=== PATIENT | female | born 1985 | race Caucasian/White ===

== ENCOUNTER 2021-07-08 11:02 | Emergency (ER) | payer SELFPAY ==
[~2021-07-08] VITALS: Ht 170.2 cm; Wt 128.8 kg
[~2021-07-08 11:02] MED LIST: LEVAQUIN500 MG PO; ULTRAM50 MG PO
[2021-07-08] MEDS ORDERED: SODIUM CHLORIDE 0.9% 1000ML 1,000 ML IV STA (11:28)
[2021-07-08] MEDS ORDERED: ONDANSETRON HCL INJ 2MG/ML 2ML 2 MG/ML VIAL IV STA (11:28)
[2021-07-08] MEDS ORDERED: HYDROCODONE/APAP 10MG-325MG TAB PO ONE (11:30)
[2021-07-08 11:39] LABS: BASOPHILS % 0.2 % (0.0-1.0); EOSINOPHILS # (AUTO) 0.1 (0.0-0.4); EOSINOPHILS % 0.9 % (0.0-6.0); HEMATOCRIT 37.7 % (34.2-44.1); HEMOGLOBIN 12.6 g/dL (12.0-16.0); LYMPHOCYTES # (AUTO) 1.4 (1.0-3.2); LYMPHOCYTES % 26.4 % (18.0-39.1); MEAN CORPUSCULAR HEMOGLOBIN 30.7 pg (28-32); MEAN CORPUSCULAR HGB CONC 33.4 g/dL (31-35); MONOCYTES # (AUTO) 0.3 (0.2-0.8); MONOCYTES % 6.3 % (4.4-11.3); NEUTROPHILS # (AUTO) 3.6 (2.1-6.9); PLATELET COUNT 192 x10e3/uL (140-360); RED CELL DISTRIBUTION WIDTH 14.5 % (11.7-14.4)
[2021-07-08] MEDS ORDERED: SODIUM CHLORIDE 0.9% 1000ML 1,000 ML ONE (11:40)
[2021-07-08] MEDS ORDERED: HYDROCODONE/APAP 10MG-325MG TAB ONE (11:40)
[2021-07-08 11:59] LABS: ALANINE AMINOTRANSFERASE 19 IU/L (0-55); ALBUMIN 4.3 g/dL (3.5-5.0); ALBUMIN/GLOBULIN RATIO 1.4 (0.8-2.0); ALKALINE PHOSPHATASE 48 IU/L (40-150); ANION GAP 18.4 mmol/L (8-16); BLOOD UREA NITROGEN 8 mg/dL (7-26); BUN/CREATININE RATIO 11 (6-25); CALCIUM 9.3 mg/dL (8.4-10.2); CARBON DIOXIDE 23 mmol/L (22-29); CHLORIDE 104 mmol/L (98-107); CREATINE KINASE 73 IU/L (29-168); CREATININE, SERUM 0.74 mg/dL (0.57-1.11); EST GLOMERULAR FILTRATION RATE 89 ML/MIN (60-); GLUCOSE 105 mg/dL (74-118); POTASSIUM 3.4 mmol/L (3.5-5.1); SODIUM 142 mmol/L (136-145)
== END 2021-07-08 14:47 | disposition home or self-care (01) ==
LOC: ER 11:28
DX: R55 Syncope and collapse (principal); M54.42 Lumbago with sciatica, left side; Z98.84 Bariatric surgery status
CPT/HCPCS: 36415; 70450; 71045; 80053; 82550; 82553; 84484; 84702; 85025; 93005; 99284; J2405; J7030